=== PATIENT | male | born 1945 | race Caucasian/White ===

== ENCOUNTER → 2023-10-16 10:10 | Outpatient (REF) | payer MEDICARE, SELFPAY ==
[2023-10-16 11:21] LABS: % Basophils 0.7 % (0-2); % Eosinophils 3.7 % (0-6); % Immature Granulocytes 0.3 % (0-0.5); % Lymphocytes 17.1 % (20.5-51.1); % Monocytes 8.1 % (1.7-9.3); % Neutrophils 70.1 % (42.2-75.2); Absolute Basophils 0.1 10^3/uL (0-0.2); Absolute Eosinophils 0.3 10^3/uL (0-0.7); Absolute Lymphocytes 1.2 10^3/uL (1.2-3.4); Absolute Monocytes 0.6 10^3/uL (0.1-0.6); Absolute Neutrophils 5.1 10^3/uL (1.4-6.5); Hematocrit 47.6 % (39.0-52.0); Mean Corp Hgb Conc. 31.5 g/dL (33.0-37.0); Mean Corpuscular Hgb 27.7 pg (27.0-31.0); Mean Platelet Volume 10.9 fL (7.4-10.4); Nucleated Red Blood Cells % 0 % (-); Platelet Count 176 10^3/uL (130-400); Red Blood Cell Count 5.41 10^6/uL (4.70-6.10); Red Cell Dist. Width 18.2 % (11.5-14.5); White Blood Cell Count 7.2 10^3/uL (4.8-10.8)
[2023-10-16 11:52] LABS: Glycohemoglobin (HgbA1c) 6.3 % (4.0-5.6)
[2023-10-16 11:55] LABS: ALT (SGPT) 16 U/L (0-50); AST (SGOT) 25 U/L (17-59); Alkaline Phosphatase 100 U/L (38-126); Blood Urea Nitrogen 18 mg/dl (9-20); Calcium 8.7 mg/dl (8.4-10.2); Carbon Dioxide 31 mmol/L (22-30); Chloride 101 mmol/L (98-107); Glucose 118 mg/dl (70-99); HDL Cholesterol 31 mg/dl; LDL Cholesterol, Calculated 80 mg/dl; Potassium 3.6 mmol/L (3.5-5.1); Sodium 139 mmol/L (135-145); Total Bilirubin 1.3 mg/dl (0.2-1.3); Total Cholesterol 134 mg/dl (50-199); Total Protein 7.6 g/dl (6.3-8.2); Triglyceride 116 mg/dl (10-149); Very Low Density Lipoprotein 23 mg/dl (0-30); eGFR > 60.00
[2023-10-16 12:37] LABS: Microalbumin/creatinine Ratio 634.5 mg/g
[2023-10-16 12:46] LABS: PSA, Total - Screen 0.17 ng/ml (0.0-4.0); TSH 1.33 uIU/ml (0.47-4.68)
== END ==
LOC: REG 10:10
PROVIDERS: ATTENDING PHYSICIAN Family Medicine
DX: Z00.00 Encounter for general adult medical examination without abnormal findings (principal); E11.22 Type 2 diabetes mellitus with diabetic chronic kidney disease; I89.0 Lymphedema, not elsewhere classified; D64.9 Anemia, unspecified; Z12.5 Encounter for screening for malignant neoplasm of prostate
CPT/HCPCS: 36415; 80053; 80061; 82043; 82570; 83036; 84443; 85025; G0103

== ENCOUNTER → 2024-02-06 08:27 | Outpatient (REF) | payer MEDICARE, SELFPAY ==
[2024-02-06 09:40] LABS: % Basophils 0.4 % (0-2); % Eosinophils 3.7 % (0-6); % Immature Granulocytes 0.3 % (0-0.5); % Lymphocytes 16.4 % (20.5-51.1); % Monocytes 7.8 % (1.7-9.3); % Neutrophils 71.4 % (42.2-75.2); Absolute Eosinophils 0.4 10^3/uL (0-0.7); Absolute Lymphocytes 1.6 10^3/uL (1.2-3.4); Absolute Monocytes 0.8 10^3/uL (0.1-0.6); Hematocrit 44.6 % (39.0-52.0); Hemoglobin 13.7 g/dL (13.0-18.0); Mean Corp Hgb Conc. 30.7 g/dL (33.0-37.0); Mean Corpuscular Hgb 26.8 pg (27.0-31.0); Mean Corpuscular Volume 87.1 fL (80.0-94.0); Nucleated Red Blood Cells % 0 % (-); Platelet Count 248 10^3/uL (130-400); Red Blood Cell Count 5.12 10^6/uL (4.70-6.10); Red Cell Dist. Width 16.7 % (11.5-14.5); White Blood Cell Count 9.8 10^3/uL (4.8-10.8)
[2024-02-06 11:14] LABS: Glycohemoglobin (HgbA1c) 6.3 % (4.0-5.6)
[2024-02-06 11:46] LABS: ALT (SGPT) 15 U/L (0-50); AST (SGOT) 23 U/L (17-59); Albumin 3.7 g/dl (3.5-5.0); Alkaline Phosphatase 155 U/L (38-126); Blood Urea Nitrogen 19 mg/dl (9-20); Carbon Dioxide 26 mmol/L (22-30); Chloride 104 mmol/L (98-107); Glucose 99 mg/dl (70-99); HDL Cholesterol 36 mg/dl; LDL Cholesterol, Calculated 81 mg/dl; Potassium 4.4 mmol/L (3.5-5.1); Sodium 140 mmol/L (135-145); Total Bilirubin 0.6 mg/dl (0.2-1.3); Total Cholesterol 140 mg/dl (50-199); Total Protein 7.7 g/dl (6.3-8.2); Triglyceride 116 mg/dl (10-149); Very Low Density Lipoprotein 23 mg/dl (0-30); eGFR > 60.00
[2024-02-06 12:01] LABS: TSH 0.98 uIU/ml (0.47-4.68)
== END ==
LOC: REG 08:27
PROVIDERS: ATTENDING PHYSICIAN Family Medicine
DX: E11.65 Type 2 diabetes mellitus with hyperglycemia (principal); Z00.00 Encounter for general adult medical examination without abnormal findings; I10 Essential (primary) hypertension; I89.0 Lymphedema, not elsewhere classified; I73.9 Peripheral vascular disease, unspecified
CPT/HCPCS: 36415; 80053; 80061; 83036; 84443; 85025

== ENCOUNTER 2024-02-09 14:54 | Emergency (ER) | payer MEDICARE, SELFPAY ==
[2024-02-09 15:04] VITALS: BP 139/59
[2024-02-09 15:27] LABS: % Basophils 0.4 % (0-2); % Eosinophils 1.4 % (0-6); % Immature Granulocytes 0.4 % (0-0.5); % Lymphocytes 12.3 % (20.5-51.1); % Monocytes 8.5 % (1.7-9.3); Absolute Basophils 0.1 10^3/uL (0-0.2); Absolute Eosinophils 0.2 10^3/uL (0-0.7); Absolute Immature Granulocytes 0.1 10^3/uL (0-0.05); Absolute Lymphocytes 1.5 10^3/uL (1.2-3.4); Absolute Neutrophils 9.3 10^3/uL (1.4-6.5); Hematocrit 43.3 % (39.0-52.0); Hemoglobin 14.2 g/dL (13.0-18.0); Mean Corp Hgb Conc. 32.8 g/dL (33.0-37.0); Mean Corpuscular Volume 82.5 fL (80.0-94.0); Mean Platelet Volume 9.7 fL (7.4-10.4); Nucleated Red Blood Cells % 0 % (-); Platelet Count 266 10^3/uL (130-400); Red Blood Cell Count 5.25 10^6/uL (4.70-6.10); Red Cell Dist. Width 16.8 % (11.5-14.5); White Blood Cell Count 12.1 10^3/uL (4.8-10.8)
[2024-02-09 15:43] LABS: ALT (SGPT) 13 U/L (0-50); AST (SGOT) 24 U/L (17-59); Albumin 3.6 g/dl (3.5-5.0); Alkaline Phosphatase 131 U/L (38-126); Blood Urea Nitrogen 18 mg/dl (9-20); Calcium 8.7 mg/dl (8.4-10.2); Carbon Dioxide 27 mmol/L (22-30); Chloride 102 mmol/L (98-107); Glucose 82 mg/dl (70-99); Potassium 4.2 mmol/L (3.5-5.1); Sodium 136 mmol/L (135-145); Total Bilirubin 2.4 mg/dl (0.2-1.3); Total Protein 7.6 g/dl (6.3-8.2); eGFR > 60.00
[2024-02-09 15:56] VITALS: BMI 30.5
--- NOTE | 2024-02-09 17:06 | ED.GENMED ---
History of Present Illness
General
Chief Complaint: Male Genito-Urinary Symptoms
Source: patient and significant other
Time Seen by Provider: 02/09/24 16:32
Nursing documentation reviewed up to this point in time: agreed with
History of Present Illness
History of Present Illness:
pt s a 78 y/o M with h/o copd, htn, hld, NIDDM
here with mutiple complaints but starts off saying 'i'm not staying in [facility]ospital.'
pt says he has chronic roxane, lymphedema, neuropathy, weakness
he doesn't wlak much
he says that for the past 4 days when he gets up urine leaks out and he isn't sure why so he has been sittin abbie solarese an dnow has a rash on his abdomen and groin
he has pain all over
he has worsening of his leg swelling/lymphedema and skin changes/redness to the legs
he is deconditioned and his S.O. is having a hard time caring for him but he is very stubborn.
denies fever, chills, chest pain, vomiting
has chronic stool incontinence sometimes too
has a wheelchair and walks minimally but worse in the past 4 days that he feels like he cannot walk
he called his pcp whor ecommended him coming in to be sure he wasn't having urinary retnetion
Past History
Past History
ED Past Medical History: HTN, Hypercholesterolemia and NIDDM
Social History
Tobacco: Former smoker
Living: with family
Employment: Retired
Review of Systems
Review of Systems
Allergies reviewed?: Yes
All Other Systems: Not applicable
Phy Exam
Physical Exam
Physical Exam:
GENERAL: Alert , agitated, uncooperative
EYE: pupils equal and reactive
NECK: Supple
ENT: o/p clr, mmm.
CARDIAC: Regular rate and rhythm .
LUNGS: Clear breath sounds bilaterally, no acute respiratory distress, no wheezes/rales/rhonchi
ABDOMEN: Soft, without focal tenderness, no r/g, no cvat, normal bowel sounds
: erythematous penis area
woudn't allow me to evaluate him
NEUROLOGICAL: Alert and oriented, no focal neuro deficits
SKIN: pale;
b/l LE lymphedema, poorly cared for, with cellulitis, weeping, crusts
intertrigo erythema in folds of his pannus and groin
MUSCULOSKELETAL: b/l lymphedema
PSYCH: uncooperative
Course
Orders/Labs/Results
Orders:
Orders
02/09/24 15:22
CBC/With Diff [Complete Blood Count/With Diff] Urgent
CMP [Comprehensive Metabolic Panel] Urgent
02/09/24 16:04
Bladder Scan- Treatment ONCE
Abnormal Lab Results
02/09/24
15:22
WBC 12.1 H 10^3/uL
(4.8-10.8)
MCHC 32.8 L g/dL
(33.0-37.0)
RDW 16.8 H %
(11.5-14.5)
Abs Immat Gran (auto) 0.1 H 10^3/uL
(0-0.05)
Absolute Neuts (auto) 9.3 H 10^3/uL
(1.4-6.5)
Absolute Monos (auto) 1.0 H 10^3/uL
(0.1-0.6)
Neutrophils % 77.0 H %
(42.2-75.2)
Lymphocytes % 12.3 L %
(20.5-51.1)
Total Bilirubin 2.4 H mg/dl
(0.2-1.3)
Alkaline Phosphatase 131 H U/L
(38-126)
02/09/24 15:22
02/09/24 15:22
Vital Signs
Initial and Last Documented VS:
Initial Vital Signs
Temp Pulse Resp BP Pulse Ox
97.9 F 77 16 139/59 98
02/09/24 15:04 02/09/24 15:04 02/09/24 15:04 02/09/24 15:04 02/09/24 15:04
Last Documented Vital Signs
Temp Pulse Resp BP Pulse Ox
97.9 F 77 16 112/45 88
02/09/24 15:04 02/09/24 15:04 02/09/24 15:04 02/09/24 17:14 02/09/24 17:16
MDM/Problems Addressed
Differential Diagnosis Includes:
cellulitis uti, urinary retention, sepsis, deconditioning
MDM/Problems Addressed:
78 y/o M
copd, htn, hld, dm
here with c/o urinary incontinence when he moves around the past 4 days
pt says he walks but his S.O says he can barely get around
she tries to care for him but he is very difficult. Patient frequently refuses care. He has developed worsening acute on chronic lymphedema with erythema in his legs over the last couple weeks and believes he needs an antibiotic. Previously he
has had wound care and Keflex however he is not cooperative for wound care currently. His urine is really what brought COVID. Patient says when he stands he leaks and thus he is not really able to get himself to the bathroom. He also has pain all
over. Patient developed a red and weeping rash in his groin and lower abdominal region because of being soiled. He appears very deconditioned and she is agitated, he does not want to cooperate with exam. I tried to get him up and he could barely
hold himself, he was a two-person assist just to stand and then soiled the bed with stool incontinence. He did not provide a urine urine sample. He has leukocytosis of 12 and an obvious infection is can of his lower extremities, could have a UTI.
Patient is bladder scan was only 200 so he does not require Johnston at this time. He does have intertrigo. He appears to need SNF for rehab because his significant other is having a hard time caring for him but he is refusing. He ultimately signed
AGAINST MEDICAL ADVICE form and requested to be discharged. I did not obtain a urine sample but the risk-benefit of giving Keflex for at least in the setting of his cellulitis was worth a trial. Also will give him nystatin powder for his intertrigo
*Critical Care Note
Total Time (30-74mins, 75-104mins- exclusive of procedures): Not Applicable
ED Attending Note
-
Portions of this chart may have been created with voice recognition software.� Occasional wrong word or��sound alike� substitutions may have occurred due to the inherent limitations of voice recognition software.
Discharge Plan
Departure
Patient Disposition: Against Medical Advice
Date of Disposition: 02/09/24
Time of Disposition: 17:32
Patient with high blood pressure during this ER visit?: No
Condition: Serious
Covid-19: Not Applicable
Discharge Problem:
Candidal intertrigo, Bilateral cellulitis of lower leg, Lymphedema, Urinary incontinence, Generalized weakness, Physical deconditioning
Instructions: Urinary Incontinence (DC), Leaving Against Medical Advice, Intertrigo (DC), Cellulitis (Skin Infection), Adult ED
Prescriptions:
New
nystatin 100,000 unit/gram powder
1 applic topical TID 7 Days Qty: 30 0RF
cephalexin 500 mg capsule
500 mg PO QID Qty: 28 0RF
No Action
furosemide 40 MG tablet
40 mg PO BID
metformin 500 MG tablet
1,000 mg PO BID
tramadol-acetaminophen 1 EACH tablet
1 ea PO Q6HPRN PRN (Reason: moderate pain)
Patient Comments:
01/11/2021: last filled 01/02/21, 30 tabs for 7 days from [id number]
glipizide 10 MG tablet
10 mg PO BID
oxycodone 5 MG tablet
5 - 10 mg PO Q6HPRN PRN (Reason: severe pain)
Patient Comments:
01/11/2021: last filled 01/03/21, 40 tabs for 10 days from [id number]
Ozempic
1 dose SC TH
Patient Comments:
Q
fexofenadine-pseudoephedrine [Rachna-D 24 Hour] 1 EACH tablet extended release 24 hr
1 ea PO DAILYPRN PRN (Reason: congestion)
aspirin 81 MG tablet,delayed release (DR/EC)
81 mg PO DAILY
Patient Comments:
01/11/2021: Just prescribed
potassium chloride 10 MEQ tablet,ER particles/crystals
10 meq PO DAILY
Patient Comments:
01/11/2021: Just prescribed
magnesium oxide 500 MG capsule
500 mg PO DAILY Qty: 30 0RF
Referrals:
Raul Castro MD [Family Provider] -
Activity Restrictions/Additional Instructions:
YOU LEFT AGAINST MEDICAL ADVICE
WE WANTED TO ADMIT YOU BECAUSE OF YOUR SYMPTOMS
YOU WERE UNABLE TO PROVIDE A URINE SAMPLE BUT YOUR BLADDER ULTRASOUND SHOWED 200 ML IN YOUR BLADDER
YOU REFUSED A JOHNSTON CATHETER
YOU ALSO HAVE WORSENING LYMPHEDEMA WITH SKIN INFECTOIN
YOU ALSO HAVE A RASH THAT APPEARS LIKE A FUNGAL RASH IN YOUR ABDOMEN AND GROIN FROM URINE - APPLY THE NYSTATIN POWDER TOT HIS AREA
FOR THE CELLULITIS TAKE KEFLEX 1 TAB 4 TIMES ADAY FOR 7 DAYS
FOLLOW UP WITH UROLOGY AND YOUR FAMILY DOCTOR
RETURN FOR WORSE SYMPTOMS
YOU ARE AT RISK FOR SEPSIS AND BY LEAVING AGAINST MEDICAL ADVICE
Interventions
Interventions:
*Risk Screen - Suicide Last Done: 02/09/24 15:56
*General Assessment Last Done: 02/09/24 15:56
*Neglect/Abuse Screening Last Done: 02/09/24 15:56
ED- Fall Risk Assessment Last Done: 02/09/24 18:10
*ED COVID-19 Vaccine History Last Done: 02/09/24 18:10
*Nursing Disposition Last Done: 02/09/24 18:10
ED-Male Genitourinary Assessment Last Done: 02/09/24 15:56
Discharge Date and Time
Discharge Date/Time: 02/09/24 18:45
Print Language: MALAGASY
[2024-02-09 17:14] VITALS: BP 112/45
== END 2024-02-09 18:45 | disposition left against medical advice (07) ==
LOC: EMR 14:54
PROVIDERS: EMERGENCY PHYSICIAN Emergency Medicine; FAMILY PHYSICIAN Family Medicine
DX: B37.2 Candidiasis of skin and nail (principal); L03.116 Cellulitis of left lower limb; L03.115 Cellulitis of right lower limb; I89.0 Lymphedema, not elsewhere classified; R32 Unspecified urinary incontinence; R53.1 Weakness; R53.81 Other malaise; I10 Essential (primary) hypertension; E11.9 Type 2 diabetes mellitus without complications; Z53.29 Procedure and treatment not carried out because of patient's decision for other reasons
CPT/HCPCS: 99283; 51798; 80053; 85025